=== PATIENT | female | born 1995 | race American Indian/Alaskan Native ===

== ENCOUNTER 2016-11-02 13:45 | Emergency (ER) | payer SELFPAY ==
[2016-11-02 14:07] VITALS: BP 104/63
--- NOTE | 2016-11-02 14:39 | Emergency Department Report ---
ED Peds HEENT HPI - General Chief Complaint: Sore Throat Stated Complaint: SORE THROAT Source: patient Mode of arrival: Ambulatory Limitations: No Limitations - History of Present Illness Initial Comments: 21 year old female presents to ED with sore throat and hurts to swallow x2-3 days. MD Complaint: throat pain -: Gradual Fever: No Pain Location: throat Radiation: none Quality: sharp Consistency: constant Worsens With: other (swallowing) Associated Symptoms: denies other symptoms - Centor Criteria Exudate or Swelling of Tonsils: (0) No Tender/Swollen Anterior Cervical Lymph Nodes: (0) No Fever ( T > 38C, 100.4F): (0) No Abscence of Cough: (1) Yes - Related Data Previous Rx's Medication Instructions Recorded Last Taken Type Ketorolac [Toradol] 10 mg PO Q6H PRN #20 tablet 11/02/16 Unknown Rx Allergies Allergy/AdvReac Type Severity Reaction Status Date / Time No Known Allergies Allergy Unverified 11/02/16 14:01 ED Review of Systems ROS: Stated complaint: SORE THROAT Other details as noted in HPI Constitutional: denies: chills, fever Eyes: denies: eye pain, eye discharge, vision change ENT: throat pain. denies: ear pain Respiratory: denies: cough, shortness of breath, wheezing Cardiovascular: denies: chest pain, palpitations Endocrine: no symptoms reported Gastrointestinal: denies: abdominal pain, nausea, diarrhea Genitourinary: denies: urgency, dysuria, discharge Musculoskeletal: denies: back pain, joint swelling, arthralgia Skin: denies: rash, lesions Neurological: denies: headache, weakness, paresthesias Psychiatric: denies: anxiety, depression Hematological/Lymphatic: denies: easy bleeding, easy bruising Pediatric Past Medical History - Chronic Health Problems Hx Asthma: No Hx Diabetes: No ED Peds HEENT EXAM - General General appearance: alert, in no apparent distress Limitations: No Limitations - Head Head exam: Positive: atraumatic, normal inspection - Eye Eye Exam: Normal Apperance, PERRL, EOMI - ENT ENT exam: Positive: normal exam, TM's normal bilaterally Negative: Tonsillar Exudate, Pharangeal Exudate, Peritonsillar Swelling Ear Exam: Normal External Exam: Left, Right - Neck Neck exam: Positive: normal inspection, full ROM. Negative: tenderness, lymphadenopathy - Respiratory Respiratory exam: Positive: normal lung sounds bilaterally - Cardiovascular Cardiovascular Exam: Positive: regular rate, normal rhythm - GI/Abdominal GI/Abdominal exam: Positive: soft. Negative: tenderness - Extremities Extremities exam: Positive: normal inspection - Back Back exam: normal inspection - Neurological Neurological Exam: Positive: Alert, Oriented X3, Normal Gait - Psychiatric Psychiatric exam: Positive: normal affect, normal mood - Skin Skin exam: Positive: warm, dry, intact ED Course Vital Signs 11/02/16 14:02 Temperature 98.6 F Pulse Rate 62 Respiratory 16 Rate Blood Pressure 104/63 O2 Sat by Pulse 100 Oximetry ED Medical Decision Making - Lab Data Lab Results 11/02/16 Range/Units 14:45 Urine HCG, Qual Negative (Negative) Negative strep A rapid testing - Medical Decision Making 21 year old female presents to ED with sore throat. negative rapid strep A testing and patient understands she will be called with strep culture results or she may return to ED for results if she has not been called by hospital personnel. patient is stable, neurologically intact and in no acute distress. patient is talking on cell phone upon discharge. Critical care attestation.: If time is entered above; I have spent that time in minutes in the direct care of this critically ill patient, excluding procedure time. ED Disposition Clinical Impression: Pharyngitis with viral syndrome Disposition: DISCHARGED TO HOME OR SELFCARE Is pt being admited?: No Does the pt Need Aspirin: No Condition: Stable Instructions: Pharyngitis (ED) Prescriptions: Ketorolac [Toradol] 10 mg PO Q6H PRN #20 tablet PRN Reason: Pain Referrals: PRIMARY CARE, [Primary Care Provider] - 3-5 Days Forms: Work/School Release Form(ED)
[2016-11-02] MEDS ORDERED: NORCO 7.5/325 PO ONE (15:24)
[2016-11-02] MEDS ORDERED: TORADOL IM ONE (15:24)
== END 2016-11-02 16:10 | disposition home or self-care (01) ==
LOC: ED 13:45
DX: J02.9 Acute pharyngitis, unspecified (principal); B34.9 Viral infection, unspecified
CPT/HCPCS: 81025; 87116; 87430; 96372; 99283; J1885

== ENCOUNTER 2017-01-02 15:53 | Emergency (ER) | payer SELFPAY ==
[2017-01-02 16:06] VITALS: BP 131/94
[2017-01-02] MEDS ORDERED: ULTRAM PO ONE (17:24)
--- NOTE | 2017-01-02 18:03 | Emergency Department Report ---
Entered by ENRIQUE HOOVER, acting as scribe for CUATE TORRES NP. ED ENT HPI - General Chief complaint: Dental/Oral Stated complaint: TOOTH INFECTION Time Seen by Provider: 01/02/17 17:20 Source: patient Mode of arrival: Ambulatory Limitations: No Limitations - History of Present Illness Initial comments: toothache x 2 weeks complaint: tooth pain Onset/Timin -: week(s), This afternoon Location: tooth # (19) Severity: moderate, severe Severity scale (0 -10): 8 Quality: aching, sharp Consistency: constant Improves with: none Worsens with: none, eating, other (hot cold senstation ) Context- Dental: history of dental caries Associated Symptoms: gum swelling. denies: fever, cough, toothache, pain with swallowing, sore throat, tinnitus, hearing loss, discharge from ear, rhinorrhea - Related Data Previous Rx's Medication Instructions Recorded Last Taken Type Ketorolac [Toradol] 10 mg PO Q6H PRN #20 tablet 11/02/16 Unknown Rx Acetaminophen/Codeine [Tylenol 1 tab PO Q6H PRN #15 tab 01/02/17 Unknown Rx /Codeine # 3 tab] Amoxicillin/K Clav Tab [Augmentin 1 tab PO Q12HR #20 tab 01/02/17 Unknown Rx 875 mg] Chlorhexidine Mouthwash [Peridex] 15 ml MM BID #1 bottle 01/02/17 Unknown Rx Allergies Allergy/AdvReac Type Severity Reaction Status Date / Time No Known Allergies Allergy Unverified 11/02/16 14:01 ED Dental HPI - General Chief complaint: Dental/Oral Stated complaint: TOOTH INFECTION Time Seen by Provider: 01/02/17 17:14 Source: patient Mode of arrival: Ambulatory Limitations: No Limitations - History of Present Illness complaint: tooth pain 1 - infected dental caries Severity: moderate Quality: aching, sharp Consistency: constant Improves with: none Worsens with: chewing, hot/cold liquids Context- Dental: history of dental caries, poor dental care Dental Associated Symptons: Yes: Gum Swelling - Related Data Previous Rx's Medication Instructions Recorded Last Taken Type Ketorolac [Toradol] 10 mg PO Q6H PRN #20 tablet 11/02/16 Unknown Rx Acetaminophen/Codeine [Tylenol 1 tab PO Q6H PRN #15 tab 01/02/17 Unknown Rx /Codeine # 3 tab] Amoxicillin/K Clav Tab [Augmentin 1 tab PO Q12HR #20 tab 01/02/17 Unknown Rx 875 mg] Chlorhexidine Mouthwash [Peridex] 15 ml MM BID #1 bottle 01/02/17 Unknown Rx Allergies Allergy/AdvReac Type Severity Reaction Status Date / Time No Known Allergies Allergy Unverified 11/02/16 14:01 ED Review of Systems Constitutional: denies: chills, fever Eyes: denies: eye pain, eye discharge, vision change ENT: dental pain. denies: ear pain, throat pain Respiratory: denies: cough, shortness of breath, wheezing Cardiovascular: denies: chest pain, palpitations Endocrine: no symptoms reported Gastrointestinal: denies: abdominal pain, nausea, diarrhea Genitourinary: denies: urgency, dysuria, discharge Musculoskeletal: denies: back pain, joint swelling, arthralgia Skin: denies: rash, lesions Neurological: denies: headache, weakness, paresthesias Psychiatric: denies: anxiety, depression Hematological/Lymphatic: denies: easy bleeding, easy bruising ED Past Medical Hx - Past Medical History Previous Medical History?: No Hx Diabetes: No Hx Asthma: No - Surgical History Past Surgical History?: No - Social History Smoking Status: Current Every Day Smoker Substance Use Type: Alcohol - Medications Home Medications: Home Medications Medication Instructions Recorded Confirmed Last Taken Type Ketorolac [Toradol] 10 mg PO Q6H PRN #20 tablet 11/02/16 Unknown Rx Acetaminophen/Codeine [Tylenol 1 tab PO Q6H PRN #15 tab 01/02/17 Unknown Rx /Codeine # 3 tab] Amoxicillin/K Clav Tab [Augmentin 1 tab PO Q12HR #20 tab 01/02/17 Unknown Rx 875 mg] Chlorhexidine Mouthwash [Peridex] 15 ml MM BID #1 bottle 01/02/17 Unknown Rx ED Physical Exam - General Limitations: No Limitations General appearance: alert, in no apparent distress - Head Head exam: Present: atraumatic, normocephalic - Eye Eye exam: Present: normal appearance, PERRL, EOMI Pupils: Present: normal accommodation - ENT ENT exam: Present: mucous membranes moist, TM's normal bilaterally - Expanded ENT Exam Expanded Ear exam: Present: normal external inspection Mouth exam: Present: normal external inspection, tongue normal. Absent: drooling, trismus, laceration Teeth exam: Present: dental caries, dental tenderness #, other (mild gum erythema no focal abscess ) - Neck Neck exam: Present: normal inspection, full ROM. Absent: tenderness, lymphadenopathy, thyromegaly - Respiratory Respiratory exam: Present: normal lung sounds bilaterally. Absent: respiratory distress, wheezes, stridor - Cardiovascular Cardiovascular Exam: Present: regular rate, normal rhythm. Absent: systolic murmur, diastolic murmur, rubs, gallop - GI/Abdominal GI/Abdominal exam: Present: soft, normal bowel sounds - Rectal Rectal exam: Present: deferred - Extremities Exam Extremities exam: Present: normal inspection - Back Exam Back exam: Present: normal inspection - Neurological Exam Neurological exam: Present: alert, oriented X3 - Psychiatric Psychiatric exam: Present: normal affect, normal mood - Skin Skin exam: Present: warm, dry, intact, normal color. Absent: rash ED Course Vital Signs 01/02/17 16:02 Temperature 98.4 F Pulse Rate 74 Respiratory 16 Rate Blood Pressure 131/94 O2 Sat by Pulse 98 Oximetry ED Medical Decision Making - Medical Decision Making pt is a 21 y/o aaf with hx of dental caries who presents for acute exacerbation of same, x 2 week symptoms include pain aching 7/10 exacerbated by hot and cold sensation, exam: infected dental caries to #19 mild gum erythema no focal abscess no fluctuance, plan: amoxicillin , t 3 prn pain , peridex mouth wash , follow up with [facility] for evaluation and extraction. pt will follow with [facility] [phone] ED Disposition Clinical Impression: Dental caries Disposition: DC- TO HOME OR SELFCARE Is pt being admited?: No Does the pt Need Aspirin: No Condition: Good Instructions: Toothache (ED) Additional Instructions: [facility] [phone] Prescriptions: Acetaminophen/Codeine [Tylenol /Codeine # 3 tab] 1 tab PO Q6H PRN #15 tab PRN Reason: pain Amoxicillin/K Clav Tab [Augmentin 875 mg] 1 tab PO Q12HR #20 tab Chlorhexidine Mouthwash [Peridex] 15 ml MM BID #1 bottle Referrals: PRIMARY CARE,MD [Primary Care Provider] - 3-5 Days Forms: Work/School Release Form(ED) Time of Disposition: 18:02 This documentation as recorded by the SNEHA forrest ELIZABETH,accurately reflects the service I personally performed and the decisions made by , CUATE TORRSE, ALTERATION INSPECTOR.
== END 2017-01-02 18:15 | disposition home or self-care (01) ==
LOC: ED 15:53
DX: K02.9 Dental caries, unspecified (principal); F17.200 Nicotine dependence, unspecified, uncomplicated
CPT/HCPCS: 99282

== ENCOUNTER 2018-06-14 21:42 | Emergency (ER) | payer MEDICAID ==
--- NOTE | 2018-06-14 22:27 | Emergency Department Report ---
ED Female HPI - General Chief complaint: Vaginal Bleeding Stated complaint: ABDOMINAL PAIN Time Seen by Provider: 06/14/18 22:15 Source: patient Mode of arrival: Wheelchair Limitations: No Limitations - History of Present Illness Initial comments: 22-year-old female to emergency Department complaining of a reemergence of pelvic cramping and vaginal bleeding, passing several large blood clots about 1-2 hour prior to arrival. She was emergency department to 2 days ago where she discovered being and hasn't held anything at that time. Its no nausea or vomiting no fever, chills, sweats, or no dysuria. Resents we will look like products of conception plastic bag, as as well and is worried that she may have miscarried. No presyncope, no chest pain MD Complaint: vaginal bleeding, vaginal discharge, pelvic pain -: Gradual Location: suprapubic Radiation: non-radiating Severity: mild Quality: dull Consistency: constant Improves with: none Worsens with: none - Related Data Previous Rx's Medication Instructions Recorded Last Taken Type Ketorolac [Toradol] 10 mg PO Q6H PRN #20 tablet 11/02/16 Unknown Rx Acetaminophen/Codeine [Tylenol 1 tab PO Q6H PRN #15 tab 01/02/17 Unknown Rx /Codeine # 3 tab] Amoxicillin/K Clav Tab [Augmentin 1 tab PO Q12HR #20 tab 01/02/17 Unknown Rx 875 mg] Chlorhexidine Mouthwash [Peridex] 15 ml MM BID #1 bottle 01/02/17 Unknown Rx Pnv No.118/Iron Fumarate/FA 1 each PO QDAY #30 tab.chew 06/11/18 Unknown Rx [ 19 Chewable] Acetaminophen/Codeine [Tylenol 1 tab PO Q6H PRN #10 tab 06/15/18 Unknown Rx /Codeine # 3 tab] Allergies Allergy/AdvReac Type Severity Reaction Status Date / Time No Known Allergies Allergy Unverified 11/02/16 14:01 ED Review of Systems ROS: Stated complaint: ABDOMINAL PAIN Other details as noted in HPI Constitutional: denies: chills, fever Eyes: denies: eye pain, eye discharge, vision change ENT: denies: ear pain, throat pain Respiratory: denies: cough, shortness of breath, wheezing Cardiovascular: denies: chest pain, palpitations Endocrine: no symptoms reported Gastrointestinal: denies: abdominal pain, nausea, diarrhea Genitourinary: denies: urgency, dysuria, discharge Musculoskeletal: denies: back pain, joint swelling, arthralgia Skin: denies: rash, lesions Neurological: denies: headache, weakness, paresthesias Psychiatric: denies: anxiety, depression Hematological/Lymphatic: denies: easy bleeding, easy bruising ED Past Medical Hx - Past Medical History Hx Diabetes: No Hx Asthma: No - Surgical History Additional Surgical History: wisdom tooth - Social History Smoking Status: Never Smoker Substance Use Type: None - Medications Home Medications: Home Medications Medication Instructions Recorded Confirmed Last Taken Type Ketorolac [Toradol] 10 mg PO Q6H PRN #20 tablet 11/02/16 Unknown Rx Acetaminophen/Codeine [Tylenol 1 tab PO Q6H PRN #15 tab 01/02/17 Unknown Rx /Codeine # 3 tab] Amoxicillin/K Clav Tab [Augmentin 1 tab PO Q12HR #20 tab 01/02/17 Unknown Rx 875 mg] Chlorhexidine Mouthwash [Peridex] 15 ml MM BID #1 bottle 01/02/17 Unknown Rx Pnv No.118/Iron Fumarate/FA 1 each PO QDAY #30 tab.chew 06/11/18 Unknown Rx [ 19 Chewable] Acetaminophen/Codeine [Tylenol 1 tab PO Q6H PRN #10 tab 06/15/18 Unknown Rx /Codeine # 3 tab] ED Physical Exam - General Limitations: No Limitations General appearance: alert, in no apparent distress - Head Head exam: Present: atraumatic, normocephalic - Eye Eye exam: Present: normal appearance, PERRL Pupils: Present: normal accommodation - ENT ENT exam: Present: normal exam, mucous membranes moist. Absent: TM's normal bilaterally - Neck Neck exam: Present: normal inspection, full ROM - Respiratory Respiratory exam: Present: normal lung sounds bilaterally. Absent: respiratory distress, wheezes, chest wall tenderness, accessory muscle use - Cardiovascular Cardiovascular Exam: Present: regular rate, normal rhythm. Absent: systolic murmur, diastolic murmur, rubs, gallop - GI/Abdominal GI/Abdominal exam: Present: soft, normal bowel sounds. Absent: distended, tenderness, hyperactive bowel sounds, hypoactive bowel sounds, organomegaly, mass, bruit - Extremities Exam Extremities exam: Present: normal inspection, full ROM, normal capillary refill - Back Exam Back exam: Present: normal inspection, full ROM. Absent: CVA tenderness (R), CVA tenderness (L) - Neurological Exam Neurological exam: Present: alert, oriented X3, CN II-XII intact - Psychiatric Psychiatric exam: Present: normal affect, normal mood - Skin Skin exam: Present: warm, dry, intact, normal color. Absent: rash ED Course Vital Signs 06/14/18 21:48 Temperature 97.8 F Pulse Rate 98 H Respiratory 18 Rate Blood Pressure 106/70 O2 Sat by Pulse 100 Oximetry ED Medical Decision Making - Radiology Data Radiology results: report reviewed Critical care attestation.: If time is entered above; I have spent that time in minutes in the direct care of this critically ill patient, excluding procedure time. ED Disposition Clinical Impression: Spontaneous miscarriage Disposition: DC-01 TO HOME OR SELFCARE Is pt being admited?: No Does the pt Need Aspirin: No Condition: Stable Instructions: Spontaneous Miscarriage (ED) Prescriptions: Acetaminophen/Codeine [Tylenol /Codeine # 3 tab] 1 tab PO Q6H PRN #10 tab PRN Reason: Pain , Severe (7-10) Referrals: PRIMARY CARE,MD [Primary Care Provider] - 3-5 Days ([id number] woman with your [employer], call them tomorrow and alert them of your visit here this evening)
--- NOTE | 2018-06-15 01:11 | Ultrasound Report ---
FINAL REPORT EXAM: US OB <= 14 WEEKS FETUS HISTORY: Vaginal bleeding pain COMPARISON: June 11, 2018 TECHNIQUE: Several real-time grayscale and color Doppler images were obtained. FINDINGS: The uterus measures 10.7 x 6.0 x 5.6 centimeters. No IUP or adnexal masses are demonstrated. Endometrial stripe appears thickened measuring up to 3 centimeters in the submitted images. Technolog ist appears to measure smaller portion of the endometrial stripe. This may reflect hemorrhagic produc ts from miscarriage. Retained products are not excluded. Right ovary measures 3.9 x 2.1 x 3.6 centimeters. Left ovary 3.1 x 2.3 x 2[address] right ovarian cystic structure which may reflect corpus luteum. This is stable from prior study. IMPRESSION: Previously seen IUP is no longer visualized compatible with interval miscarriage. There is thickened endometrial stripe on today's exam which may reflect hemorrhagic products from miscarriage. Retained products are not excluded. Correlation with serial beta HCGs and followup exam is suggested.
[2018-06-15 04:28] VITALS: BP 118/63
== END 2018-06-15 04:00 | disposition home or self-care (01) ==
LOC: ED 21:42
DX: O03.9 Complete or unspecified spontaneous abortion without complication (principal); Z3A.14 14 weeks gestation of pregnancy
CPT/HCPCS: 36415; 76801; 84702; 88305; 99284